=== PATIENT | female | born 1960 | race Hispanic/Latino ===

== ENCOUNTER 2021-05-24 09:46 | Day surgery (SDC) | payer BC ==
[2021-05-20 12:38] VITALS: BMI 23.1
[2021-05-24] MEDS ORDERED: Lidocaine 1% MPF 2 ML VIAL ONE (10:19)
[2021-05-24] MEDS ORDERED: Lidocaine 1% PF 5 ML VIAL ONE (10:47)
[2021-05-24] MEDS ORDERED: PROPOFOL 40 ML ONE (10:47)
[2021-05-24] MEDS ORDERED: PROPOFOL 20 ML ONE (11:41)
== END 2021-05-24 13:20 | disposition home or self-care (01) ==
LOC: CSHSDC 09:46
PROVIDERS: ATTEND Internal Medicine Gastroenterology
PROC: 0DJD8ZZ Inspection of Lower Intestinal Tract, Via Natural or Artificial Opening Endoscopic (ICD-10-PCS; principal; 2021-05-24)
DX: Z12.11 Encounter for screening for malignant neoplasm of colon (principal); Q43.8 Other specified congenital malformations of intestine; E11.9 Type 2 diabetes mellitus without complications; E03.9 Hypothyroidism, unspecified; Z90.710 Acquired absence of both cervix and uterus; K21.9 Gastro-esophageal reflux disease without esophagitis
CPT/HCPCS: J2704